=== PATIENT | female | born 1985 | race Caucasian/White ===

== ENCOUNTER → 2017-03-04 | Emergency (ER) | payer OTHER, SELFPAY | PROVIDERS: Emergency Provider Nurse Practitioner Family; Family Provider Family Medicine; Visit Provider Nurse Practitioner Family | DX: J10.1 Influenza due to other identified influenza virus with other respiratory manifestations (principal) | CPT/HCPCS: 87804 ==

== ENCOUNTER → 2017-03-10 03:49 | Outpatient (CLI) | payer OTHER, SELFPAY ==
--- NOTE | 2017-03-10 | XR_ITS ---
XR ankle LT min 3V HISTORY: Pain following injury ORDERING PHYSICIAN: Stef Ware MD PATIENT AGE: 31 years COMPARISON: None FINDINGS: No fracture or dislocation. No lytic or blastic change. There is normal mineralization.. The joint spaces are well-preserved. No significant degenerative/arthritic changes. No erosive changes evident. IMPRESSION: Negative ankle, no acute finding
== END ==
PROVIDERS: PCP Emergency Medicine; Visit Provider Emergency Medicine
DX: M25.572 Pain in left ankle and joints of left foot (principal)
CPT/HCPCS: 73610

== ENCOUNTER → 2017-11-18 21:17 | Outpatient (CLI) | payer OTHER, SELFPAY ==
--- NOTE | 2017-11-18 | XR_ITS ---
XR foot RT min 3V HISTORY: Right foot pain following injury ITS.REASON: RIGHT FOOT INJURY ORDERING PHYSICIAN: Jacob Levy MD PATIENT AGE: 31 years COMPARISON: None FINDINGS: No fracture or dislocation. No lytic or blastic change. There is normal mineralization.. The joint spaces are well-preserved. No significant degenerative/arthritic changes. No erosive changes evident. IMPRESSION: Negative, no acute finding
== END ==
PROVIDERS: PCP Emergency Medicine; Visit Provider Emergency Medicine
DX: M79.671 Pain in right foot (principal)
CPT/HCPCS: 73630

== ENCOUNTER → 2019-02-01 16:55 | Outpatient (CLI) | payer OTHER, SELFPAY ==
[2019-02-01 17:36] VITALS: BMI 26.6
[2019-02-01 18:24] LABS: Microscopic, Urine URINE MICROSCOPIC (MICROSCOPIC)
[2019-02-01 18:27] LABS: Appearance,Urine CLEAR (Clear); Bilirubin,Urine Negative (Negative); Blood, Urine Negative (Negative); Color,Urine YELLOW (Yellow); Glucose,Urine (UA) Negative (Negative); Ketones,Urine Negative (Negative); Leukocyte Esterase,Urine 1+ (Negative); Nitrate,Urine Negative (Negative); Protein,Urine Negative (Negative); Specific Gravity, Urine 1.015 (1.005-1.030); Urobilinogen,Urine 0.2 EU/dl (0.2)
[2019-02-01 18:34] LABS: Bacteria,Urine Trace /lpf; Squamous Epithelial Cell,Urine Occasional #/hpf (0-5)
== END ==
PROVIDERS: Visit Provider Nurse Practitioner
DX: N39.0 Urinary tract infection, site not specified (principal)
CPT/HCPCS: 81001; 87086

== ENCOUNTER 2020-01-30 13:48 | Emergency (ER) | payer OTHER, SELFPAY ==
[2020-01-30 13:49] VITALS: BP 162/89; PULSE 75; RESP 14; TEMP 36.6; O2SAT 100; BMI 22.9
--- NOTE | 2020-01-30 13:50 | XR_ITS ---
PROCEDURE: XR ANKLE LT MIN 3V CLINICAL INDICATION: fall Posttraumatic pain COMPARISON: CR [facility] XR ankle LT min 3V from 03/10/2017 FINDINGS: Soft tissue swelling is present at the lateral malleolus. An extra calcific density is present at the tip of the lateral malleolus consistent with an avulsion fracture. This bony density measures 7 mm. IMPRESSION: Avulsion fracture at the tip of the lateral malleolus with soft tissue swelling Dictated by: Saul Obrien MD 01/30/2020 14:27 Saul Obrien MD in [place] 01/30/2020 14:27
--- NOTE | 2020-01-30 14:05 | [facility].EDGENADL ---
ED Disposition Clinical Impression: Closed avulsion fracture of distal end of fibula Qualifiers: Encounter type: initial encounter Laterality: left Qualified Code(s): S82.832A - Other fracture of upper and lower end of left fibula, initial encounter for closed fracture Disposition: Home, Self-Care Condition on Discharge: Good Instructions: Ankle Fracture, DI for Ankle Fracture Additional Instructions: You have been evaluated for ankle injury, diagnosed with a fibula fracture. Please wear walking boot at all times. Take Tylenol and ibuprofen for pain. Follow-up with orthopedics. Return to the emergency department if you have any new or worsening symptoms. Referrals: PCP,No [Non-Staff] - Time of Disposition: 14:45 - Critical Care Critical Care Time: No Attestation: On 01/30/20, the high probability of a clinically significant, sudden or life threatening deterioration of the following system(s) required my full and direct attention, intervention and personal management. The time I documented below is in addition to time spent performing reported procedures but includes the following listed in this critical care notation. Medical Decision Making - Medical Records Medical records reviewed: Yes: I reviewed the patient's medical records. - [place] Inquiry Pt receiving controlled substance: No Vital Signs: 01/30/20 13:49 Temperature 97.9 F Temperature Source Oral Pulse Rate [Right Brachial] 75 Respiratory Rate 14 Blood Pressure [Right Arm] 162/89 H Blood Pressure Mean [Right Arm] 113 Blood Pressure Source [Right Arm] Automatic Cuff Blood Pressure Position [Right Arm] Sitting 02 Sat by Pulse Oximetry 100 Oxygen Delivery Method Room Air Orders (Tests/Meds): ED MEDICATIONS Discontinued Medications Generic Name Dose Route Start Last Admin Trade Name Freq PRN Reason Stop Dose Admin Ketorolac Tromethamine 15 mg 01/30/20 14:11 Ketorolac 30mg/Ml Vial IM 01/30/20 14:12 ONCE ONE - Radiology Data #1 Image(s): Ankle Image Reviewed: Yes I reviewed the patient's radiology results, Yes I reviewed the patient's radiology image Preliminary Findings: Abnormal (Avulsion fracture of the distal fibula.) Medical Decision Narrative: In summary this is a 34-year-old female presenting to the emergency department with left ankle injury. She is awake and alert on arrival. Vital signs stable. Concern for sprain, strain, fibula fracture, metatarsal fracture. Will obtain x-rays. X-rays show avulsion fracture of the distal fibula. Patient placed into a walking boot. Instructed to follow-up with orthopedics. Stable for discharge. General Adult HPI - General Chief complaint: Extremity Injury, Lower Stated complaint: ankle injury Time Seen by Provider: 01/30/20 13:55 Mode of Arrival: Wheelchair Limitations: No Limitations Description of Symptoms (Recalled from ER Triage Doc. 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 - History of Present Illness HPI narrative: 34-year-old female presenting to the emergency department with left ankle injury. 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 She had immediate pain on the lateral aspect, inferior to the lateral malleolus. Had difficulty bearing weight. Pain is located all on the side of her ankle. No pain on the inner portion of the ankle or the forefoot. No pain in the sheikh, knee. She had difficulty ambulating, was able to do so with toe touch. Has not taken any medications for pain or swelling. Has a history of ankle bone fractures. - Related Data Home Medications Medication Instructions Recorded Confirmed Ledipasvir/Sofosbuvir [Harvoni 1 tab PO DAILY 11/18/17 11/18/17 90-400 mg Tablet] Allergies Allergy/AdvReac Type Severity Reaction Status Date / Time No Known Allergies Allergy Verified 10/15/17 09:27 [facility] History - Hepatiti
[2020-01-30 15:18] VITALS: BP 158/114; PULSE 74; O2SAT 97
[2020-01-30 15:21] VITALS: BP 157/97; PULSE 79; RESP 15; TEMP 36.6; O2SAT 97
== END 2020-01-30 15:21 | disposition home or self-care (01) ==
PROVIDERS: Emergency Provider Emergency Medicine; PCP Family Medicine
DX: S82.832A Other fracture of upper and lower end of left fibula, initial encounter for closed fracture (principal); X50.1XXA Overexertion from prolonged static or awkward postures, initial encounter; Y92.69 Other specified industrial and construction area as the place of occurrence of the external cause; Y99.0 Civilian activity done for income or pay; Z90.710 Acquired absence of both cervix and uterus
CPT/HCPCS: 73610; 96372; 99282